=== PATIENT | female | born 1960 | race Caucasian/White ===

== ENCOUNTER 2016-11-16 08:52 | Emergency (ER) | payer MEDICARE, OTHER ==
[~2016-11-16] VITALS: Ht 160 cm; Wt 69.1 kg
[~2016-11-16 08:52] MED LIST: ALBU8.5H4 IH; AZEL137S11 NS; BUSP15TA3 PO; DIVA250T2 PO; DOCU-41 PO; FEXO180T85 PO; LEVO50TA6 PO; OMEP20CA11 PO; QUET25TA PO; RIZA10TA26 PO; SIMV40TA5 PO; TEMA7.5C14 PO; VENL150C PO
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
[2016-11-16 09:00] VITALS: BP 155/101; PULSE 94; RESP 24; O2SAT 100
[2016-11-16] MEDS ORDERED: LORazepam 1 mg Tablet PO ONE (09:05)
[2016-11-16] MEDS ORDERED: Lidocaine 1%-Epi 1:100,000 50 mL Inj SUBQ ONE (09:55)
[2016-11-16] MEDS ORDERED: Lidocaine 1%-Epi 1:100,000 20 mL Inj ONE (10:00)
[2016-11-16 11:02] VITALS: BP 143/79; PULSE 83; RESP 16; O2SAT 100
[2016-11-16 11:37] VITALS: BP 143/79; PULSE 83; RESP 16; O2SAT 100
== END 2016-11-16 11:38 | disposition home or self-care (01) ==
LOC: SED 08:52
DX: S01.412A Laceration without foreign body of left cheek and temporomandibular area, initial encounter (principal); S09.93XA Unspecified injury of face, initial encounter; F41.9 Anxiety disorder, unspecified; K21.9 Gastro-esophageal reflux disease without esophagitis; E03.9 Hypothyroidism, unspecified; I10 Essential (primary) hypertension; Y04.0XXA Assault by unarmed brawl or fight, initial encounter; Y93.89 Activity, other specified; Y99.8 Other external cause status; Y92.9 Unspecified place or not applicable; Z88.1 Allergy status to other antibiotic agents

== ENCOUNTER 2016-12-19 21:42 | Emergency (ER) | payer MEDICAID, MEDICARE, OTHER ==
[~2016-12-19] VITALS: Ht 160 cm; Wt 65.9 kg
[2016-12-19 21:49] VITALS: BP 154/66; PULSE 78; RESP 20; O2SAT 98
--- NOTE | 2016-12-19 22:02 | ED.REPORT ---
HPI-Psychiatric Illness Date of Service Dec 19, 2016 ED Provider: Jacob Heart DO Pt is a 56 y.o. female with a hx of bipolar disorder, depression, and anxiety who presents to the ED via police, involuntarily, with SI. Pt was at [facility] when she told others that she wanted to kill herself by jumping from [place]. They contacted police and the pt was transported to the ED involuntarily. Upon arrival to the ED pt states that she will kill herself once her aunt dies because she will be "worthless". Nursing Notes Stated Complaint: INVOLUNTARY Chief Complaint: Psychiatric Complaint Nursing Notes Reviewed: Yes Allergies: Coded Allergies: amoxicillin (Unverified Allergy, Severe, ASTHMA ATTACK, 03/31/16) Scheduled Azelastine HCl (Azelastine HCl) 137 Mcg/0.137 Ml [place].pump 137 MCG NS BID Buspirone (Buspirone) 15 Mg Tablet 15 MG PO BID Divalproex ER (Depakote ER) 250 Mg Tab.er.24h 250 MG PO DAILY *DAILY USE ONLY* Swallowed whole without chewing to avoid local irritation of the mouth and throat. Fexofenadine (Madelin Allergy) 180 Mg Tablet 180 MG PO DAILY Levothyroxine (Levothyroxine) 50 Mcg Tablet 50 MCG PO DAILY Omeprazole (Omeprazole) 20 Mg Capsule.dr 20 MG PO DAILY Quetiapine Fumarate (Seroquel) 25 Mg Tablet 150 MG PO HS Simvastatin (Simvastatin) 40 Mg Tablet 40 MG PO HS Venlafaxine ER (Effexor XR) 150 Mg Cap.er.24h 150 MG PO DAILY Scheduled PRN Albuterol HFA (Albuterol HFA) 8.5 Gm Hfa.aer.ad 2 PUFF IH Q4 PRN PRN For Shortness of Breath Docusate Sodium (Colace) 100 Mg Capsule 100 MG PO DAILY PRN PRN For Constipation Rizatriptan (Maxalt) 10 Mg Tablet 10 MG PO PRN PRN PRN For Headache MAY REPEAT Temazepam (Temazepam) 7.5 Mg Capsule 7.5 MG PO HS PRN PRN For Insomnia General Time Seen by MD: 22:02 Chief Complaint Suicidal ideation Hx Obtained From: Patient Arrived By: Police Onset Occurred: Just prior to arrival Symptom Duration: Since onset Progression Since Onset: Unchanged Severity: Current: No pain currently Risk-Psychiatric Illness Suicide Risk Stratification RF Statements: Risk factors reviewed Past Medical History Past Medical History Thyroid disease Hypertension Asthma GERD Bipolar Depression Anxiety Chronic pain Past Surgical History none reported Family History Noncontributory Smoking History Never Smoker Social History Lives with her brother, her aunt, and her brother's girlfriend. Alcohol Use: In recovery Drug Use: Denies drug use Other Social History: Local resident Ambulatory Status Independent Review of Systems Constitutional: Denies: Chills, Fatigue Respiratory: Denies: Dyspnea on exertion, Hemoptysis Cardiovascular: Denies: Chest pain, Dyspnea on exertion GI: Denies: Abdominal pain Neurologic: Denies: Abnormal movement, Bladder dysfunction Psychiatric: Reports: Suicidal ideation, Denies: Agitation, Homicidal ideation Complete sys rev & neg: except as marked. Physical Exam Initial Vital Signs Vital Signs (First) Date Time Temp Pulse Resp B/P Pulse Ox O2 Delivery O2 Flow Rate FiO2 12/19/16 21:49 36.2 78 20 154/66 98 Room Air Initial VS: Reviewed Head / Eyes: Atraumatic, Normocephalic Respiratory: Breath sounds normal, No respiratory distress Cardiovascular: Regular rate & rhythm, Intact distal pulses Abdomen / GI: No distention Extremities: Vascular intact, Neuro intact Skin: Warm, Dry, No cyanosis General/Constitutional: Awake, Alert, Well appearing, Well developed, Well hydrated, Well nourished, Not toxic appearing Behavior: Positive: Tearful Neurologic: Oriented X3, Speech NL Psychiatric: Not homicidal, No hallucinations Abnormal Mood/Affect: Positive: Flat affect Abnormal Thinking / Perception: Positive: Suicidal, with plan Interpretation & Diagnostics Lab Results Interpretation Result Diagram: 12/19/16223012/19/162230 Test 12/19/16 22:31 White Blood Count 7.5th/mm3 (3.8-10.1) Red Blood Count 4.10mil/mm3 (3.90-5.20) Hemoglobin 11.9g/dL (12.0-15.6) Hematocrit 35.8% (35.0-46.0) Mean Corpuscular Volume 87.3fL (81-100) Mean Corpuscular Hemoglobin 29.0pg (27.0-35.0) Mean Corpuscular Hemoglobin Concent 33.2% (32.0-37.0) Red Cell Distribution Width 14.4% (12.3-15.4) Platelet Count 265bil/L (150-400) Neutrophils (%) (Auto) 59.1% (40-74) Lymphocytes (%) (Auto) 25.9% (14-46) Monocytes (%) (Auto) 13.7% (4-12) Eosinophils (%) (Auto) 0.1% (0-5) Basophils (%) (Auto) 0.4% (0-3) Sodium Level 139mEq/L (134-144) Potassium Level 3.5mEq/L (3.5-5.2) Chloride Level 101mEq/L (97-108) Carbon Dioxide Level 24mmol/L (18-29) Blood Urea Nitrogen 19mg/dL (6-24) Creatinine 0.91mg/dL (0.57-1.00) Estimat Glomerular Filtration Rate 92mL/min (>59) Glucose Level 112mg/dL (60-99) Calcium Level 8.6mg/dL (8.5-10.1) Total Bilirubin 0.2mg/dL (0.0-1.2) Aspartate Amino Transf (AST/SGOT) 16U/L (0-50) Alanine Aminotransferase (ALT/SGPT) 17U/L (0-32) Alkaline Phosphatase 76U/L (25-150) Total Protein 6.5g/dL (6.4-8.4) Albumin 4.3g/dL (3.4-5.0) Thyroid Stimulating Hormone (TSH) 2.250uIU/mL (0.450-4.500) Hold Son Top Tube Received (Received) Alcohol, Quantitative < 10mg/dL (0-10) Re-Eval/Medical Decision Med Decision/Clinical Course 56-year-old female with a history of mental illness presents voluntarily for mental health evaluation. She is having strong suicidal thoughts. Evidently she takes care of her aunt and when her aunt passes way she plans on killing herself. She feels that her aunt is the only one in the world gloves or any similar only purpose for being alive. She would like to obtain mental health help. [facility] and she had a breakdown there. She was crying and she admitted to being suicidal. There is an affidavit that accompanies the chart. On my evaluation she has a very bland affect. She seems sad. She does admit to having suicidal ideations without a specific plan. It is hard to say if this young lady meets admission criteria are not. I do believe that she needs a mental health evaluation. The issue is that she is voluntary at this time. For whatever reason JONY will not dispatch at [facility] any longer for cases like this. I have no choice but to keep her here until a social science instructor evaluation can be completed. Care will be signed out to the mini shifter attending. TREE DOCTOR evaluation pending. Laboratory work is all reassuring Counseled Regarding: Diagnosis Discharge & Departure Shift Change Sign-Out Patient Care Transferred: Yes (Dr. Vernon) Discussed Complaint(s): Yes Input from Consult: TREE DOCTOR evaluation Response to Therapy: Improved Impression: Primary Impression: Suicidal ideation Discharge Condition All VS Reviewed: Yes Condition: Stable Referrals: Berta Law DO (PCP) Care Transferred to: Dr. Vernon Care Transferred at: 03:00 Vikas Attestation Portions of this note were transcribed by Ashley Roberts. I, Dr. Heart personally performed the history, physical exam and medical decision-making; I reviewed and confirmed the accuracy of the information in the transcribed note. Signed by : Vikas Gallegos, 12/20/16 and 0049. copies to: Berta Law Todd P DO Dec 19, 2016 22:02 ASHLEY ROBERTS Dec 19, 2016 22:41
[2016-12-19 22:41] LABS: BASOPHILS % (AUTO) 0.4 % (0-3); EOSINOPHILS % (AUTO) 0.1 % (0-5); MONOCYTES % (AUTO) 13.7 % (4-12); Mean Corpuscular Volume 87.3 fL (81-100); NEUTROPHILS % (AUTO) 59.1 % (40-74); Platelet Count 265 bil/L (150-400)
[2016-12-20] MEDS ORDERED: Pantoprazole 40 mg ER24 Tablet PO ONE (01:45)
[2016-12-20 04:39] VITALS: BP 150/80; PULSE 62; RESP 16; O2SAT 95
[2016-12-20] MEDS ORDERED: Albuterol HFA 200 Puff Inhaler (Vent Pts Only) VENTILATOR ONE (06:10)
[2016-12-20] MEDS ORDERED: Albuterol HFA 60 Puff 8 Gm Inhaler INHALATION ONE (06:15)
[2016-12-20] MEDS ORDERED: Pantoprazole 20 mg ER24 Tablet PO ONE (08:10)
[2016-12-20] MEDS ORDERED: Venlafaxine XR 75 mg ER24 Capsule PO ONE (08:10)
[2016-12-20] MEDS ORDERED: Divalproex (QD) 250 mg ER24 Tablet PO ONE (08:10)
[2016-12-20] MEDS ORDERED: BusPIRone 15 mg Dividose Tablet PO ONE (08:10)
[2016-12-20 10:11] VITALS: BP 159/79; PULSE 69; RESP 16; O2SAT 99
== END 2016-12-20 10:10 | disposition home or self-care (01) ==
LOC: SED 21:42
DX: R45.851 Suicidal ideations (principal); I10 Essential (primary) hypertension; J45.909 Unspecified asthma, uncomplicated; K21.9 Gastro-esophageal reflux disease without esophagitis; F31.9 Bipolar disorder, unspecified; F41.9 Anxiety disorder, unspecified; E07.9 Disorder of thyroid, unspecified; Z88.0 Allergy status to penicillin
CPT/HCPCS: 36415; 80053; 80164; 82075; 84443; 85025; 99285; G0480

== ENCOUNTER 2017-01-05 01:16 | Emergency (ER) | payer MEDICARE, MEDICAID ==
[~2017-01-05] VITALS: Ht 157.5 cm; Wt 69.1 kg
[~2017-01-05 01:16] MED LIST changes: -DIVA250T2 PO
[2017-01-05 01:19] VITALS: BP 99/68; PULSE 86; RESP 20; O2SAT 97
--- NOTE | 2017-01-05 01:55 | ED.REPORT ---
HPI-General Illness Date of Service Jan 05, 2017 ED Provider: David Agudelo MD History of Present Illness: Jamee Mera is a 56 year old woman with a PMH of depression and suicidal ideation who presents with a 1 day history of diarrhea which is yellow in color and foul smelling. She is concerned that she may be suffering from C. 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 Diff multiple times in the past. Ms. Mera is currently staying at [facility] due to suicidal ideation. She is concerned that she currently shares a single toilet with 17 other adults and she does not want to spread any potential infection to the other residents. She denies recent antibiotic usage, and states that she otherwise feels well. Nursing Notes Stated Complaint: POSS C-DIF Chief Complaint: General Complaint Nursing Notes Reviewed: Yes Allergies: Coded Allergies: amoxicillin (Unverified Allergy, Severe, ASTHMA ATTACK, 03/31/16) Scheduled Azelastine HCl (Azelastine HCl) 137 Mcg/0.137 Ml [place].pump 137 MCG NS BID Buspirone (Buspirone) 15 Mg Tablet 15 MG PO BID Fexofenadine (Madelin Allergy) 180 Mg Tablet 180 MG PO DAILY Levothyroxine (Levothyroxine) 50 Mcg Tablet 50 MCG PO DAILY Omeprazole (Omeprazole) 20 Mg Capsule.dr 20 MG PO DAILY Quetiapine Fumarate (Seroquel) 25 Mg Tablet 150 MG PO HS Simvastatin (Simvastatin) 40 Mg Tablet 40 MG PO HS Venlafaxine ER (Effexor XR) 150 Mg Cap.er.24h 150 MG PO DAILY Scheduled PRN Albuterol HFA (Albuterol HFA) 8.5 Gm Hfa.aer.ad 2 PUFF IH Q4 PRN PRN For Shortness of Breath Docusate Sodium (Colace) 100 Mg Capsule 100 MG PO DAILY PRN PRN For Constipation Ondansetron ODT (Zofran ODT) 8 Mg Tablet 8 MG PO Q4H PRN PRN For Nausea Rizatriptan (Maxalt) 10 Mg Tablet 10 MG PO PRN PRN PRN For Headache MAY REPEAT Temazepam (Temazepam) 7.5 Mg Capsule 7.5 MG PO HS PRN PRN For Insomnia General Time Seen by MD: 01:30 Chief Complaint Diarrhea Hx Obtained From: Patient Onset Occurred: 1 day ago Symptom Duration: Since onset Recent Healthcare: No recent doctor visit Similar Sx Previous: No Past Medical History Past Medical History Thyroid disease Hypertension Asthma GERD Bipolar Depression Anxiety Chronic pain Past Surgical History none reported Family History Noncontributory Smoking History Never Smoker Social History Lives with her brother, her aunt, and her brother's girlfriend. Alcohol Use: In recovery Drug Use: Denies drug use Other Social History: Local resident Ambulatory Status Independent Review of Systems Full Review of Systems GI: Reports: Diarrhea Complete sys rev & neg: except as marked. Physical Exam Gen: A/O x3 pleasant cooperative woman in NAD Neck: Supple, full ROM, no lymphadenopathy HEENT: PERRL, EOMI, no scleral icterus, no conjunctival pallor CV: RRR, no murmurs rubs or gallops Resp: Lungs CTA BL, no wheezing rales or rhonchi Abdomen: soft, non tender, BS+ 4Q Extr: no cyanosis clubbing or edema Neuro: CN 2-12 grossly intact, no focal neurologic deficit. Vital Signs Vital Signs Date Time Temp Pulse Resp B/P Pulse Ox O2 Delivery O2 Flow Rate FiO2 01/05/17 02:40 36.8 84 16 156/84 98 Room Air 01/05/17 01:19 37.1 86 20 99/68 97 Room Air Initial VS: Reviewed Re-Eval/Medical Decision Med Decision/Clinical Course Given that the patient states she does not feel unwell, and that it will take many hours for the lab to run her stool sample it does not seem prudent to keep her here until results return. Thus the patient has submitted her stool sample and has been istructed to call the hospital during business hours tomorrow afternoon to get her results. Fell diarrhea without blood and without exposure to antibiotics, may be C. difficile in the setting, but await PCR this morning. She will contact us tomorrow for results and follow-up also with her PCP. Counseled Regarding: Diagnosis, When/why to return to ED Discharge & Departure Shift Change Sign-Out Patient Care Transferred: No Discussed Complaint(s): Yes Primary Impression: Diarrhea Patient Instructions: Acute Diarrhea (ED) Additional Instructions: There's no reason for you to stay in the ER for the entire time required to run your test which will likely be several hours at this time of day. If you have blood in your stool, you begin to have a large amount of foul smelling diarrhea , have fevers or chills, or have any other concerning symptoms please return to the ED for further evaluation. Please call [phone] to check on your results if you have not heard anything by tomorrow afternoon. Referrals: Berta Law DO (PCP) Attending Statement As attending of record for this patient, I conducted an independent history and physical examination, and I concur with the resident documentation as above, and as amended. copies to: Berta Law David E DO Jan 05, 2017 01:55 David Agudelo MD Jan 05, 2017 07:16
[2017-01-05] MEDS ORDERED: ONDA8TAB7 PO (02:23)
[2017-01-05] MEDS ORDERED: Ondansetron 8 mg ODT Tablet PO ONE (02:35)
[2017-01-05 02:40] VITALS: BP 156/84; PULSE 84; RESP 16; O2SAT 98
== END 2017-01-05 02:43 | disposition home or self-care (01) ==
LOC: SED 01:16
DX: R19.7 Diarrhea, unspecified (principal); I10 Essential (primary) hypertension; J45.909 Unspecified asthma, uncomplicated; K21.9 Gastro-esophageal reflux disease without esophagitis; Z88.1 Allergy status to other antibiotic agents